=== PATIENT | female | born 1970 | race Caucasian/White ===

== ENCOUNTER 2019-02-10 22:57 | Emergency (ER) | payer OTHER ==
--- NOTE | 2019-02-10 23:27 | RAD ---
Exam:2 views right hip HISTORY: Fall. Pain. COMPARISON: None FINDINGS: Uncomplicated right hip arthroplasty. No fracture. Visualized bony pelvis is intact. IMPRESSION: No fracture.
== END 2019-02-10 23:48 | disposition home or self-care (01) ==
LOC: ERS 22:57
DX: S70.01XA Contusion of right hip, initial encounter (principal); E03.9 Hypothyroidism, unspecified; I10 Essential (primary) hypertension; E78.00 Pure hypercholesterolemia, unspecified; E11.40 Type 2 diabetes mellitus with diabetic neuropathy, unspecified; F41.9 Anxiety disorder, unspecified; F17.210 Nicotine dependence, cigarettes, uncomplicated; F17.290 Nicotine dependence, other tobacco product, uncomplicated; Z79.899 Other long term (current) drug therapy; Z86.73 Personal history of transient ischemic attack (TIA), and cerebral infarction without residual deficits; W18.30XA Fall on same level, unspecified, initial encounter

== ENCOUNTER 2024-01-31 02:08 | Emergency (ER) | payer MEDICARE | END 2024-01-31 03:21 | disposition home or self-care (01) | LOC: ERS 02:08 | DX: S90.02XA Contusion of left ankle, initial encounter (principal); I10 Essential (primary) hypertension; F17.210 Nicotine dependence, cigarettes, uncomplicated; W54.1XXA Struck by dog, initial encounter | CPT/HCPCS: 99283 ==